=== PATIENT | male | born 2000 | race Caucasian/White ===

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

== ENCOUNTER 2019-02-01 00:23 | Emergency (ER) | payer OTHER, SELFPAY ==
[2019-02-01 00:24] VITALS: BP 123/81; PULSE 110; RESP 16; RESP 18; TEMP 37.4; BMI 20.9
--- NOTE | 2019-02-01 00:43 | ED.VIS.GEN ---
History of Present Illness Chief Complaint: Fever Narrative: Patient is a 18-year-old male who presents with a febrile illness. He complains of chills and sweats. He has had a temperature of 101. He complains of headache muscle and joint aches and productive cough. He is not short of breath. No abdominal pain. He had some nausea this morning although this has since resolved. No vomiting. No diarrhea. No urinary symptoms such as dysuria, frequency, urgency. He denies sore throat or congestion. Past Medical History - Allergies and Home Meds Allergies/Adverse Reactions: Allergies divalproex sodium [From Depakote] Allergy (Verified 06/17/17 01:47) Other Primary Care Physician: Ector Lazaro MD [Primary Care Provider] - Past Medical History: None Smoking Status: Former smoker Review of Systems All systems negative except as indicated General: Reports: Chills, Fever Cardiovascular: Denies: Chest pain Respiratory: Reports: Cough, Sputum. Denies: Dyspnea Gastrointestinal: Reports: Nausea. Denies: Vomiting, Diarrhea Musculoskeletal: Reports: Myalgias, Arthralgias, Back pain Neurological: Reports: Headache Physical Exam Vital Signs/Narrative: Vital Signs Temp Pulse Resp BP 02/01/19 00:24 99.4 F H 110 H 16 123/81 H Inital Vital Signs reviewed: Yes General: Well nourished Head: Normocephalic Eyes: EOMI ENT: Moist mucous membranes Neck: Supple Cardiovascular: - - Heart is regular rhythm, slightly tachycardic Respiratory: No distress, CTA bilaterally. Negative for: Rales, Rhonchi, Wheezing Abdomen: Soft, Nontender, Nondistended Skin: Normal color Neurological: Alert Psychological: Normal affect Diagnostic/Tx/Re-eval Impressions Chest X-Ray 02/01/19 01:00 IMPRESSION: Normal x-ray examination of the chest. Electronically Signed: Yeyoantonio Christiano, at 1:14 EDT Tel , Service support , 02/01/19 01:00 CXR [Chest PA and Lateral] [RAD] Stat - Medical Decision Making Chest x-ray unremarkable. Patient's presentation is consistent with a viral syndrome. He was advised on supportive care and discharged home. He understands to return for new or worsening symptoms. ED Disposition - Plan for ED Patient: Disposition: Home or Assisted Living Diagnosis: Viral syndrome Instructions: VIRAL SYNDROME (Adult) Referrals: Ector Lazaro MD [Primary Care Provider] -
[2019-02-01 00:55] VITALS: TEMP 37.2
[2019-02-01] MEDS: Ibuprofen 200 MG Tablet 400 MG PO (00:56)
--- NOTE | 2019-02-01 01:00 | RAD_ITS ---
STUDY: X-RAY CHEST REASON FOR EXAM: Male, 18 years old. Fever, headache and cough TECHNIQUE: PA and lateral COMPARISON: None. FINDINGS: The lungs are clear and expanded. There is no demonstrated pleural abnormality. Normal size heart. Normal mediastinum and christine. Normal visualized pulmonary arteries. Normal visualized aortic arch and descending thoracic aorta. Normal visualized thoracic spine. Normal visualized ribs, clavicles, and shoulders. There is no demonstrated abnormality of the visualized soft tissue structures of the upper abdomen. RAD/Chest PA and Lateral IMPRESSION: Normal x-ray examination of the chest. Electronically Signed: Ye Alvarado, at 1:14 EDT Tel , Service support ,
[2019-02-01 01:50] VITALS: PULSE 100; RESP 15; TEMP 37.2
== END 2019-02-01 01:51 | disposition home or self-care (01) ==
PROVIDERS: Emergency Provider Emergency Medicine; Family Provider Family Medicine; PCP Family Medicine
DX: B34.9 Viral infection, unspecified (principal); R50.9 Fever, unspecified; R51 Headache; R05 Cough; M79.10 Myalgia, unspecified site; Z87.891 Personal history of nicotine dependence
CPT/HCPCS: 71046; 99283

== ENCOUNTER 2022-08-17 17:15 | Emergency (ER) | payer SELFPAY ==
[2022-08-17 17:15] VITALS: BP 143/79; PULSE 87; RESP 16; TEMP 36.6; O2SAT 98; BMI 20.5
--- NOTE | 2022-08-17 17:47 | EX.ED.DYSGE1 ---
HPI History of Present Illness Chief Complaint: Ear Problem Informant: patient Onset/Context/Timing Onset: Days (4 days) Context: Gradual Onset Current Severity: Moderate Maximum Severity: Moderate Narrative Narrative: Patient presents with an abscess versus cyst to his left ear. He developed a painful lump just external to the ear canal on the inferior ear 4 days ago. It has continued to grow in size. He had no drainage from it. PFSH PFSH Medical History no medical history no medical history Home Medications risperidone 0.5 mg tablet (Risperdal) 0.5 mg PO DAILY 09/03/14 [History Last Taken Unknown] risperidone 1 mg tablet 1.5 mg PO QHS 09/03/14 [History Last Taken Unknown] cephalexin 500 mg capsule 500 mg PO Q6 #40 CAPSULES 08/17/22 [Rx Last Taken Unknown] sulfamethoxazole 800 mg-trimethoprim 160 mg tablet (Bactrim DS) 1 tab PO BID #20 tabs 08/17/22 [Rx Last Taken Unknown] Allergy/AdvReac Type Severity Reaction Status Date / Time divalproex sodium Allergy Other Verified 08/17/22 17:17 [From [facility]] Social History Smoking Status: Current every day smoker tobacco type: e-cigarettes ROS ROS ED Constitutional Constitutional ED: Denies chills or fever(s) Eyes Eyes: Denies change in vision or discharge from eye(s) ENT ENT ED: Reports ear pain left; Denies discharge from eye(s), rhinorrhea or sore throat Cardiovascular Cardiovascular: Denies chest pain or palpitations Respiratory/Chest Respiratory/Chest: Denies cough or dyspnea Gastrointestinal Gastrointestinal: Denies abdominal pain, nausea or vomiting Musculoskeletal Musculoskeletal: Denies back pain or extremity pain Integumentary Reports abscess; Denies Abrasions or rash Neurologic Neurologic: Denies headache(s) or weakness Psychiatric Psychiatric: Denies anxiety or depression Allergic/Immunologic Allergic/Immunologic ED: Denies lip swelling or urticaria EXAM Physical Exam Const Vital Signs: 08/17/22 17:15 Temperature 97.8 F Temperature Source Temporal Pulse Rate 87 Respiratory Rate 16 Blood Pressure 143/79 H Blood Pressure Mean 100 Pulse Ox 98 Oxygen Delivery Method Room Air Positive well nourished and well developed General Appearance ED: well developed HEENT Reports normocephalic and head/scalp atraumatic HEENT Narrative: Erythematous fluctuant mass noted along the inferior aspect of the external ear canal on the left. No surrounding cellulitis. No spontaneous drainage. Eyes PERRL and EOMs intact bilaterally Neck supple Chest Wall inspection of chest normal and palpation of chest normal Resp normal respiratory effort and clear to auscultation bilaterally Cardio regular rate and regular rhythm GI normal to inspection, nondistended, normoactive bowel sounds Palpation: soft Extremity normal to inspection Neuro oriented x3 and no sensory deficits noted Sensorium / Orientation: alert Motor Exam: strength 5/5 throughout Psych mental status grossly normal MDM MDM MDM Narrative Medical decision making narrative: Let is applied with cottonball and placed in the left ear. Following this an 18-gauge needle was used to puncture a hole in the abscess. Return of pus is noted. Area is cleansed. He will be placed on Bactrim and Keflex, first dose is given here. Discharge Plan Triage Chief Complaint: Ear Problem ED Provider: Candida Gaytan Dx/Rx/DC Orders Clinical Impression: Cutaneous abscess Instructions: ED Abscess Incision And Drainage Prescriptions: New sulfamethoxazole-trimethoprim [Bactrim DS] 800-160 mg tablet 1 tab PO BID Qty: 20 0RF cephalexin 500 mg capsule 500 mg PO Q6 Qty: 40 0RF No Action risperidone 1 MG tablet 1.5 mg PO QHS risperidone [Risperdal] 0.5 MG tablet 0.5 mg PO DAILY Primary Care Provider: Ector Lazaro Referrals: Ector Lazaro MD [Primary Care Provider] - 1 Week if not improving Disposition Disposition: Home, Self Care
[2022-08-17] MEDS: Lidocaine/Epi/Tetracaine 50 ML 1 APPLIC TOPICAL (18:05)
[2022-08-17] MEDS: Smz/Tmp Ds Tablet 1 TABLET PO (19:23)
[2022-08-17] MEDS: Cephalexin 250 MG Capsule 500 MG PO (19:23)
== END 2022-08-17 19:33 | disposition home or self-care (01) ==
PROVIDERS: Emergency Provider Emergency Medicine; PCP Family Medicine; Visit Provider Emergency Medicine
DX: L02.811 Cutaneous abscess of head [any part, except face] (principal); F17.290 Nicotine dependence, other tobacco product, uncomplicated; Z79.899 Other long term (current) drug therapy
CPT/HCPCS: 10160; 99283

== ENCOUNTER 2023-03-20 02:40 | Emergency (ER) | payer SELFPAY ==
[2023-03-20 02:41] VITALS: BP 140/87; PULSE 95; RESP 16; TEMP 35.8; O2SAT 97; BMI 22.4
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
--- NOTE | 2023-03-20 03:11 | EX.ED.GENINJ ---
HPI History of Present Illness Chief Complaint: Head Injury Informant: patient Narrative Narrative: 5 days ago, patient was playing catch with baseball with a family member, he missed the ball and went past his glove, hitting him square in the left face. Ever since he has been having bifrontal headaches, facial pain, intermittent epistaxis, and he is having trouble sleeping tonight so he presents to the emergency department for the first evaluation since the injury. He denies having any blurry vision, eye pain, or diplopia. No loss of consciousness, he was nauseated at the beginning but no vomiting. PFSH PFSH Medical History no medical history no medical history Home Medications hydrocodone-acetaminophen 5-325mg 5mg-325mg 1 tab PO Q6H PRN PRN Pain 3 days #12 TABLETS 03/20/23 [Rx Last Taken Unknown] Allergy/AdvReac Type Severity Reaction Status Date / Time divalproex sodium Allergy Other Verified 03/20/23 02:46 [facility] Social History Smoking Status: Current every day smoker tobacco type: e-cigarettes ROS ROS ED Constitutional Constitutional ED: Denies chills or fever(s) Eyes Eyes: Denies change in vision or diplopia ENT ENT ED: Reports as per HPI, epistaxis and facial pain; Denies ear pain or rhinorrhea Cardiovascular Cardiovascular: Denies chest pain or palpitations Respiratory/Chest Respiratory/Chest: Denies cough or dyspnea Gastrointestinal Gastrointestinal: Denies abdominal pain, diarrhea, melena, nausea or vomiting Genitourinary Genitourinary ED: Denies dysuria or hematuria Musculoskeletal Musculoskeletal: Denies back pain, extremity pain or neck pain Integumentary Denies abscess, Abrasions, laceration or rash Neurologic Neurologic: Reports headache(s); Denies confusion, paresthesias or weakness EXAM Physical Exam Const Vital Signs: 03/20/23 02:41 03/20/23 02:44 Temperature 96.4 F L Temperature Source Temporal Pulse Rate 95 Respiratory Rate 16 Respiratory Effort Normal Non-Labored Respiratory Depth Normal Respiratory Pattern Normal Blood Pressure 140/87 H Blood Pressure Mean 104 Pulse Ox 97 Oxygen Delivery Method Room Air Room Air Positive well nourished and well developed General Appearance ED: well developed and NAD HEENT Reports TM's clear and nasal mucous membranes and turbinates normal HEENT Narrative: No weber sign. Faint yellowed left periorbital ecchymosis more prominent inferiorly. Tenderness in the left maxilla without crepitance or depression. No zygomatic arch tenderness. Midface stable. Nose nontender. Dried blood left naris. Face and Sinus: facial tenderness Tympanic Membrane ED: Yes TM's clear Eyes PERRL and EOMs intact bilaterally Visual Acuity: other Other Details: no entrapment or pain with extraocular movements Neck full ROM and supple General: Negative for tenderness Chest Wall Chest: symmetrical chest wall rise Resp normal respiratory effort Back/Spine normal ROM Cervical Spine: Negative for cervical spine tenderness Thoracic Spine / Upper Back: Negative for thoracic spinal tenderness Lumbar Spine / Lower Back: Negative for lumbar spinal tenderness Extremity normal to inspection and full ROM Neuro oriented x3, CN's II-XII intact bilaterally, moves all extremities, no focal motor deficits and no sensory deficits noted Bernie Coma Scale: document GCS findings Spontaneous Obeys Commands Oriented 15 Sensorium / Orientation: awake and alert Psych mental status grossly normal and thought process normal Skin Lesions: no lesions Rashes: no rashes MDM MDM MDM Narrative Medical decision making narrative: CT of both the head/brain and facial bones were obtained. I reviewed the images of both series and agree with the radiologist's interpretation of both of them, basically negative brain for acute hemorrhage/fracture, and positive fracture in the face left maxillary sinus. It appears nondepressed. Opacification of the left maxillary sinus correlates with the epistaxis he has been having off-and-on, as this is most likely blood. We will have him follow-up with ENT but this looks most likely nonsurgical. Given appropriate discharge instructions, no antibiotics indicated at this time, he was given a prescription for some short-term of analgesics. He is comfortable with that plan. Radiography Diagnostic Testing: Clinical Impression(s) from Imaging Studies Brain CT 03/20/23 03:10 IMPRESSION: 1. No evidence of acute intracranial abnormality 2. Left maxillary sinusitis Electronically Signed: Bart Tobias MD at 3:50 EST , Facial/Sinus 03/20/23 03:10 IMPRESSION: Nondepressed fracture anteromedial corner of left maxillary sinus. Near-complete opacification of left maxillary sinus suggesting superimposed sinusitis, correlate clinically. Electronically Signed: Bart Tobias MD at 3:57 EST , Discharge Plan Triage Chief Complaint: Head Injury ED Provider: Reagan Barnard Dx/Rx/DC Orders Clinical Impression: Fracture of left maxilla Instructions: ED Facial Fracture Prescriptions: New hydrocodone-acetaminophen [hydrocodone-acetaminophen] 5-325 mg tablet 1 tab PO Q6H PRN PRN (Reason: Pain) 3 Days Qty: 12 0RF Primary Care Provider: Ector Lazaro Referrals: Nicholas Abraham MD [Med Staff - Active Staff] - As soon as possible (Okay to ask for first available provider appointment) Ector Lazaro MD [Primary Care Provider] - Disposition Disposition: Home, Self Care
[2023-03-20 05:03] VITALS: RESP 18
== END 2023-03-20 05:03 | disposition home or self-care (01) ==
PROVIDERS: Emergency Provider Emergency Medicine; PCP Family Medicine; Visit Provider Emergency Medicine
DX: S02.40DA Maxillary fracture, left side, initial encounter for closed fracture (principal); R11.0 Nausea; W21.03XA Struck by baseball, initial encounter; Y93.64 Activity, baseball; F17.290 Nicotine dependence, other tobacco product, uncomplicated
CPT/HCPCS: 70450; 70486; 99282

== ENCOUNTER 2023-08-24 13:32 | Emergency (ER) | payer SELFPAY ==
[2023-08-24 13:32] VITALS: BP 143/93; PULSE 101; RESP 20; TEMP 36.3; O2SAT 96; BMI 22.2
--- NOTE | 2023-08-24 13:50 | RAD_ITS ---
EXAM: XR LEFT TOES, 3 VIEWS CLINICAL INDICATION: Redness/ Swelling, Digit #2 TECHNIQUE: Frontal, lateral and oblique views of the toes of the left foot. COMPARISON: No relevant prior studies available. FINDINGS: BONES/JOINTS: Unremarkable. No acute fracture. No dislocation. SOFT TISSUES: Unremarkable. No radiopaque foreign body. RAD/Toe(s) Min 2 Views IMPRESSION: Negative left toe x-rays. Electronically Signed: Jomar Higgins MD at 14:29 EDT Reading Location ID and State: [facility] / [place] , Service support ,
--- NOTE | 2023-08-24 16:53 | ED.VIS.LOWEX ---
HPI History of Present Illness Chief Complaint: Lower Extremity Injury Narrative Narrative: 23-year-old male presenting with left second toe pain. He states he kicked a door inadvertently and believes he broke his toe. He also states that he hyperextended the toe. Patient has been ambulatory but states it hurts when he walks. It hurts when he steps off. Patient notes that it is red and bruised. He is concerned it might be infected as well. No systemic signs or symptoms such as fevers or chills. Patient has tried Tylenol and ibuprofen at home without significant relief of his pain PFSH PFS Medical History no medical history Home Medications hydrocodone-acetaminophen 5-325mg 5mg-325mg 1 tab PO Q6H PRN PRN Pain 3 days #12 TABLETS 03/20/23 [Rx Last Taken Unknown] naproxen 500 mg tablet (Naprosyn) 500 mg PO BID PRN pain #30 tabs 08/24/23 [Rx Last Taken Unknown] Allergy/AdvReac Type Severity Reaction Status Date / Time divalproex sodium Allergy Other Verified 08/24/23 13:34 [From [facility]] Family History no significant family his Surgical History no surgical history Social History household members: family housing: house Smoking Status: Current every day smoker tobacco type: e-cigarettes ROS ROS ED Constitutional Constitutional ED: Denies chills, fever(s) or sweats Eyes Eyes: Denies blurry vision or change in vision ENT ENT ED: Denies ear pain or sore throat Cardiovascular Cardiovascular: Denies chest pain, palpitations or racing heartbeat Respiratory/Chest Respiratory/Chest: Denies cough, dyspnea or sputum Gastrointestinal Gastrointestinal: Denies abdominal pain, constipation, diarrhea, nausea or vomiting Genitourinary Genitourinary ED: Denies dysuria, hematuria or urinary frequency Musculoskeletal Musculoskeletal: Reports other Details: Left second toe pain ; Denies arthralgias, myalgias or neck pain Integumentary Denies abscess, Abrasions or rash Neurologic Neurologic: Denies headache(s), paresthesias or weakness Psychiatric Psychiatric: Denies anxiety, depression, suicidal ideation or suicidal thoughts Endocrine Endocrinology: Denies polydipsia or polyuria EXAM Physical Exam Const Vital Signs: 08/24/23 13:32 Temperature 97.4 F L Temperature Source Oral Pulse Rate 101 H Respiratory Rate 20 H Blood Pressure 143/93 H Blood Pressure Mean 109 Pulse Ox 96 Oxygen Delivery Method Room Air Positive well nourished HEENT Reports moist mucous membranes Resp normal respiratory effort Cardio regular rate and regular rhythm Extremity Extremity Narrative: Bruising and swelling noted of the left second toe. No deformity. Neurovascular intact. Wrist cap refill to all 5 toes. Neuro oriented x3 and CN's II-XII intact bilaterally Sensorium / Orientation: alert Psych mental status grossly normal MDM MDM MDM Narrative Medical decision making narrative: Patient presenting with left second toe pain. On examination it is bruised and swollen without any deformity. Patient will be given Naprosyn and x-ray was obtained to the left toes which is negative for acute fracture or subluxation. Patient states he is still having pain and was abdullahi taped to the first toe and was put in a postop shoe. Counseled we will give him Naprosyn for pain. He was given podiatry follow-up if his pain is not improved. Impression: 1. Left fourth toe contusion Lab Data Attestation: I reviewed the patient's lab results. Radiography Diagnostic Testing: Clinical Impression(s) from Imaging Studies Toe X-Ray 08/24/23 13:50 IMPRESSION: Negative left toe x-rays. Electronically Signed: Jomar Higgins MD at 14:29 EDT Reading Location ID and State: [facility] / [place] , Service support , Discharge Plan Triage Chief Complaint: Lower Extremity Injury ED Provider: Hung Galarza Dx/Rx/DC Orders Instructions: ED Finger or Toe Contusion Prescriptions: New naproxen [Naprosyn] 500 mg tablet 500 mg PO BID PRN (Reason: pain) Qty: 30 0RF No Action hydrocodone-acetaminophen [hydrocodone-acetaminophen] 5-325 mg tablet 1 tab PO Q6H PRN PRN (Reason: Pain) 3 Days Qty: 12 0RF Primary Care Provider: Ector Lazaro Referrals: César Cardona DPM [Med Staff - Active Staff] - 3-5 Days suture removal Ector Lazaro MD [Primary Care Provider] - Disposition Disposition: Home, Self Care Discharge Date/Time: 08/24/23 16:14
== END 2023-08-24 16:14 | disposition home or self-care (01) ==
PROVIDERS: Emergency Provider Student in an Organized Health Care Education/Training Program; PCP Family Medicine; Visit Provider Student in an Organized Health Care Education/Training Program
DX: S90.122A Contusion of left lesser toe(s) without damage to nail, initial encounter (principal); W22.8XXA Striking against or struck by other objects, initial encounter; F17.290 Nicotine dependence, other tobacco product, uncomplicated
CPT/HCPCS: 73660; 99283